=== PATIENT | male | born 1970 | race Caucasian/White ===

== ENCOUNTER 2025-03-01 08:39 | Day surgery (SDC) | payer BC, SELFPAY ==
[2025-02-25 16:21] VITALS: BMI 38.6
[2025-03-01 09:14] VITALS: BP 151/85; PULSE 79; RESP 18; TEMP 36.3; O2SAT 98
[2025-03-01] MEDS: LACTATED RINGERS 1000ML 1,000 ML 50 ML IV (09:28)
--- NOTE | 2025-03-01 09:40 | P.PNANES_ITS ---
[facility] Disclaimer: The information contained in this section may have been updated after the patient was seen, as this information can be updated by other users. Medical History Osteoarthritis Varicose veins of both lower extremities Atrial fibrillation Surgical History H/O colonoscopy H/O umbilical hernia repair History of repair of ACL History of arthroplasty of right knee Family History Mother Family history of diabetes mellitus type II Other Colon cancer Social History Smoking Status: Never smoker alcohol intake: current substance use type: denies use current occupational status: employed Travel in the last 8 weeks: None caffeine: Yes [facility] Anesthesia Checklist Patient Identification Patient Identification: Arm Band and Verbal (Name & ) Structural Data Admitted From: Home Planned Operative Procedure/s: colonoscopy Consent for Planned Operative Procedure(s) Verified: Yes Verified Documents: Surgical Consent NPO Status Verified Time NPO: 00:00 Chart Verification Results Verified: None Additional verifications Anesthesia Reactions: No Hx Blood Transfusions: No Blood Transfusion Reaction: No Airway Assessment Mallampati Score:: Class II C-Spine Mobility Assessed: Yes TMJ Mobility Assessed: No Dentition: Good Dentition Neurological Assessment Level of Consciousness: Awake, Alert and Appropriate Hx Seizures: No Numbness or tingling in extremities: No Anesthesia Plan Anesthesia Risk discussed: Yes Anesthesia Plan: Verified ASA Class: II Anesthesia Type: MAC
--- NOTE | 2025-03-01 10:03 | P.HP_ITS ---
History of Present Illness *Admission Date: 03/01/25 *Reason for visit:: Personal history of adenomatous colon polyps *History of present illness: Mr. Barriga is a 54-year-old gentleman who is here for follow-up surveillance colonoscopy secondary to a personal history of adenomatous polyps. The examination is deemed medically necessary for surveillance colonoscopy. The patient has been seen, interviewed and examined prior to the procedure by both myself and the anesthesia provider. [facility] Disclaimer: The information contained in this section may have been updated after the pa viri was seen, as this information can be updated by other users. Medical History (Updated 03/01/25 @ 10:15 by Carlos Alberto Dexter II, MD) Osteoarthritis Varicose veins of both lower extremities Atrial fibrillation Surgical History H/O colonoscopy H/O umbilical hernia repair History of repair of ACL History of arthroplasty of right knee Family History Mother Family history of diabetes mellitus type II Other Colon cancer Social History (Updated 03/01/25 @ 09:41 by Kuldip Nielson CRNA) Smoking Status: Never smoker alcohol intake: current substance use type: denies use current occupational status: employed Travel in the last 8 weeks: None caffeine: Yes Have you lived/traveled outside [place] in past 30 days?: No Contact w/someone who lives/traveled outside [place] past 30 days?: No Exposure to someone with infectious disease in past 14 days?: No Do you have a fever (greater than 100.4 F or 38 C)?: No Have you tested positive for COVID-19: No Exposed to someone with COVID-19 in past 14 days?: No Do you have a sore throat?: No Do you have a cough?: No Do you have any weakness?: No Are you experiencing any nausea/vomitting?: No Do you have any diarrhea?: No Are you experiencing any unusual bleeding?: No Do you have any muscle aches/pain?: No Do you have any abdominal pain?: No Are you experiencing loss of taste or smell?: No Review of Systems Review of Systems Review of systems (narrative): Negative *Cardiovascular Comments: Negative *Gastrointestinal Comments: Negative *Genitourinary Comments: Negative *Musculoskeletal Comments: Negative *Neurologic Comments: Negative Meds Home Medications and Allergies Home Medications ?Medication ?Instructions ?Recorded ?Confirmed ?Type [id number] gram-sod sulfate 9 See Rx Instructions PO .COMPLEX #3 10/08/24 Rx gram-NaCl 5.2gram-KCl-C oral pwdr ea packs (Plenvu) aspirin 81 mg chewable tablet 81 mg PO DAILY 02/25/25 03/01/25 History meloxicam 15 mg tablet 15 mg PO DAILY 02/25/25 03/01/25 History New Prescriptions to Start Prescriptions: Allergies Allergy/AdvReac Type Severity Reaction Status Date / Time No Known Allergies Allergy Verified 03/01/25 09:17 Exam Data for Last 24 hours Vital signs and Labs for Last 24 Hours: Temp Pulse Resp BP Pulse Ox O2 Del Method 97.4 F L 79 18 151/85 H 98 Room Air 03/01/25 09:14 03/01/25 09:14 03/01/25 09:14 03/01/25 09:14 03/01/25 09:14 03/01/25 09:14 *Routine HEENT Exam Head: Present normocephalic Eye: Present EOMI and PERRL ENT: Present mucous membranes moist *Routine Neck Exam Neck: Present supple *Routine Respiratory Exam Respiratory: Present CTA bilaterally *Routine Cardiovascular Exam Cardiovascular: Present RRR *Routine Abdominal Exam Abdominal: Present soft and normoactive bowel sounds; Absent tenderness *Routine Rectal Exam Rectal:: deferred *Routine Genitalia Exam Genitalia:: deferred *Routine Extremities Exam Extremities: Absent cyanosis, clubbing or edema *Routine Skin Exam Skin: Present warm; Absent rash *Routine Neurological Exam Neurological: Present alert and oriented X3 Assessment and Plan *Assessment and plan (1) Personal history of adenomatous and serrated colon polyps: Status: Acute Category: Medical Code(s): Z86.0101 - Personal history of adenomatous and serrated colon polyps (2) Family history of colon cancer: Status: Acute Category: Medical Code(s): Z80.0 - Family history of malignant neoplasm of digestive organs Plan A/P: 1. Personal history of adenomatous colon polyps and family history is the preprocedural diagnosis. The patient will be anesthetized/sedated using MAC sedation. The patient has been seen and examined. Cardiac and lung assessment prior to the examination is stable. Proceed with planned surveillance colonoscopy.
[2025-03-01 10:11] VITALS: O2SAT 100
--- NOTE | 2025-03-01 10:15 | P.PCN_ITS ---
[facility] Procedure Note Date: 03/01/25 Time: 10:33 Procedure Note:: Colonoscopy Procedure Report: Colonoscopy with cold snare polypectomy Endoscopist: Carlos Alberto Dexter II, MD Referring physician: Jose De Jesus Nettles MD, [id number], [place] [address] Date of Procedure: March 01, 2025 Equipment: Olympus 190 variable stiffness pediatric colonoscope Sedation: MAC sedation Indication: Mr. Barriga is a 54-year-old gentleman who is here for follow-up surveillance colonoscopy. He did have a colonoscopy 5 years ago and had a couple of benign polyps (tubular adenomas) removed. He reports no abdominal pain, weight loss, change in his bowel habits or rectal bleeding. He does have 2 paternal uncles with colon cancer. Procedure: Prior to the procedure, a history and physical exam was performed, and patient's medications and allergies were reviewed. The risks, benefits and alternatives of the sedation and procedure were discussed with the patient. All questions were answered and informed consent was obtained. The patient was brought to the procedure room. Patient identification and proposed procedure were verified by the physician and the nurse. The patient was placed in a left lateral decubitus position and the scope was passed under direct vision. Throughout the procedure, the patient's blood pressure, pulse, and oxygen saturations were monitored continuously. The colonoscopy was accomplished without difficulty. The patient tolerated the procedure well. Findings: On digital rectal examination there was normal rectal tone. There were no external hemorrhoids. The prostate was 2+, smooth, soft, symmetric without nodules. The colonoscope was introduced through the anal canal to the rectum and advanced to the cecum. The ileocecal valve and appendiceal orifice were identified. The scope was advanced a short distance into the ileum which appeare d grossly normal. The scope was then withdrawn into the colon. There were 2 diminutive polyps (ascending x 1 (2 mm) and descending x 1 (4 mm)). Both of these were removed via cold snare polypectomy. The remaining cecum, ascending and transverse colon and mucosa were grossly normal. There were scattered diverticuli throughout the descending and sigmoid colon (LEFT colon). The rectum itself was normal. Upon retroflexion within the rectum there were grade 2 internal hemorrhoids. The preparation was excellent throughout with [place] Preparation Score of 9. The cecal time was 12 minutes. Impression: 1. Diminutive colonic polyps x 2 2. Left-sided diverticulosis 3. Grade 2 internal hemorrhoids Plan: I will follow-up the polyp histology and recommend repeat surveillance colonoscopy again in 7 years. I would encourage psyllium fiber supplementation on a maintenance basis. Those persons that constitute having a stronger family history of colorectal cancer are those with a first-degree relative (parent, sibling, or child) diagnosed with colon cancer when they were younger than 50, or if more than one first-degree relative is affected. It is in these persons, that we recommend surveillance colonoscopy every 5 years. Persons that have 1 or more second- degree family members greater than 60 years of age at the time of their diagnosis are not deemed to be at greater risk because most colon cancers are sporadic (environmental and other factors) and are not hereditary. Only about 5 to 10 percent of colon cancer is hereditary.
[2025-03-01 10:35] VITALS: BP 149/89; PULSE 74; RESP 20; TEMP 36.4; O2SAT 95
[2025-03-01 10:45] VITALS: BP 156/76; PULSE 75; RESP 21; O2SAT 95
[2025-03-01 10:55] VITALS: BP 175/75; PULSE 77; RESP 20; O2SAT 95
[2025-03-01 11:05] VITALS: BP 158/99; PULSE 55; RESP 20; O2SAT 98
== END 2025-03-01 11:40 | disposition home or self-care (01) ==
PROVIDERS: PCP Internal Medicine; Visit Provider Internal Medicine Gastroenterology
PROC: 0DJD8ZZ Inspection of Lower Intestinal Tract, Via Natural or Artificial Opening Endoscopic (ICD-10-PCS; CPT 45378; principal; 2025-03-01 10:00)
DX: Z12.11 Encounter for screening for malignant neoplasm of colon (principal); Z86.0101 Personal history of adenomatous and serrated colon polyps; Z80.0 Family history of malignant neoplasm of digestive organs; D12.4 Benign neoplasm of descending colon; K63.5 Polyp of colon; K57.30 Diverticulosis of large intestine without perforation or abscess without bleeding; K64.1 Second degree hemorrhoids
CPT/HCPCS: 45385; J7120